=== PATIENT | female | born 1995 | race Caucasian/White ===

== ENCOUNTER → 2023-02-01 | Outpatient (REF) | LOC: M EMP 09:31 | PROVIDERS: ATTEND Family Medicine | DX: Z11.52 Encounter for screening for COVID-19 (principal) ==

== ENCOUNTER 2023-03-07 10:51 | Outpatient (CLI) | payer OTHER ==
[~2023-03-07] VITALS: Ht 157.5 cm; Wt 88.3 kg
[2023-03-07 11:06] VITALS: BP 119/63
[2023-03-07] MEDS ORDERED: PRENTAB9 PO (11:16)
[2023-03-07] MEDS ORDERED: ASPI81CH33 PO (11:17)
[2023-03-07] MEDS ORDERED: HOME MED LIST COMPLETE! XX SCH (11:20)
[2023-03-07] MEDS ORDERED: ACETAMINOPHEN 500 MG TAB PO ONE (13:10)
[2023-03-07] MEDS ORDERED: ONDANSETRON 4MG TAB PO PRN (13:15)
[2023-03-07 13:36] LABS: HEMATOCRIT 36.5 % (36.0-47.0); HEMOGLOBIN 12.3 g/dl (12.0-15.5); MEAN CORPUSCULAR HEMOGLOBIN 30.5 pg (27.0-33.0); MEAN CORPUSCULAR HGB CONC 33.7 g/dl (32.0-36.5); MEAN CORPUSCULAR VOLUME 90.6 fl (80.0-96.0); PLATELET COUNT, AUTOMATED 158 10^3/uL (150-450); RED BLOOD COUNT 4.03 10^6/uL (4.00-5.40); WHITE BLOOD COUNT 12.7 10^3/uL (4.0-10.0)
[2023-03-07 14:01] LABS: BLOOD UREA NITROGEN 14 MG/DL (9-23); CALCIUM LEVEL 8.7 MG/DL (8.5-10.1); CARBON DIOXIDE LEVEL 24 MMOL/L (20-31); CHLORIDE LEVEL 105 MMOL/L (98-107); CREATININE FOR GFR 0.77 MG/DL (0.55-1.30); GLOMERULAR FILTRATION RATE > 60.0 (>60); GLUCOSE, FASTING 88 MG/DL (60-100); POTASSIUM SERUM 3.5 MMOL/L (3.5-5.1); SODIUM LEVEL 137 MMOL/L (136-145)
[2023-03-07] MEDS ORDERED: oxyCODONE 5MG TAB PO ONE (14:15)
[2023-03-07] MEDS ORDERED: oxyCODONE 5MG TAB As Ordered ONE (14:22)
[2023-03-07 14:24] VITALS: BP 130/70
== END 2023-03-07 14:35 | disposition home or self-care (01) ==
LOC: M LDO 10:51
PROVIDERS: ATTEND Advanced Practice Midwife
DX: O26.893 Other specified pregnancy related conditions, third trimester (principal); M54.50 Low back pain, unspecified; Z3A.34 34 weeks gestation of pregnancy
CPT/HCPCS: 36415; 59025; 76775; 80048; 81001; 85027; 87086; G0463

== ENCOUNTER 2023-03-10 16:39 | Observation (INO) | payer OTHER, SELFPAY ==
[~2023-03-10] VITALS: Ht 157.5 cm; Wt 86.2 kg
[~2023-03-10 16:39] MED LIST: ASPI81CH33 PO; PRENTAB9 PO
[2023-03-10] MEDS ORDERED: CYCL5TAB PO (16:57)
[2023-03-10] MEDS ORDERED: OXYC-1 PO (16:57)
[2023-03-10] MEDS ORDERED: ACET-897 PO (16:57)
[2023-03-10] MEDS ORDERED: HOME MED LIST COMPLETE! XX SCH (17:00)
[2023-03-10 17:06] VITALS: BP 127/75; O2SAT 97
[2023-03-10] MEDS ORDERED: LR 1,000 ML IV ONE (17:15)
[2023-03-10 17:52] LABS: HEMATOCRIT 35.4 % (36.0-47.0); MEAN CORPUSCULAR HEMOGLOBIN 30.4 pg (27.0-33.0); MEAN CORPUSCULAR HGB CONC 33.9 g/dl (32.0-36.5); MEAN CORPUSCULAR VOLUME 89.6 fl (80.0-96.0); PLATELET COUNT, AUTOMATED 172 10^3/uL (150-450); RED BLOOD COUNT 3.95 10^6/uL (4.00-5.40); WHITE BLOOD COUNT 8.5 10^3/uL (4.0-10.0)
[2023-03-10] MEDS: LR 1,000 ML IV ONE (18:06)
[2023-03-10 18:20] LABS: ALBUMIN 2.7 G/DL (3.2-5.2); BILIRUBIN,TOTAL 1.3 MG/DL (0.3-1.2); CALCIUM LEVEL 8.4 MG/DL (8.5-10.1); CREATININE FOR GFR 1.21 MG/DL (0.55-1.30); GLOMERULAR FILTRATION RATE 57.3 (>60); POTASSIUM SERUM 3.8 MMOL/L (3.5-5.1); TOTAL PROTEIN 6.1 G/DL (5.7-8.2)
[2023-03-10 18:33] VITALS: BP 126/82
[2023-03-10 19:01] LABS: APPEARANCE, URINE HAZY (CLEAR); BACTERIA, URINE AUTO 1+ (NEGATIVE); BILIRUBIN, URINE AUTO NEGATIVE (NEGATIVE); BLOOD, URINE BLOOD NEGATIVE (NEGATIVE); COLOR, URINE YELLOW (YELLOW); GLUCOSE, URINE (UA) AUTO NEGATIVE (NEGATIVE); KETONE, URINE AUTO 1+ mg/dL (NEGATIVE); LEUKOCYTE ESTERASE, URINE AUTO 2+ (NEGATIVE); NITRITE, URINE AUTO NEGATIVE (NEGATIVE); PROTEIN, URINE AUTO 1+ mg/dL (NEGATIVE); RBC, URINE AUTO 2 /HPF (0-3); SPECIFIC GRAVITY URINE AUTO 1.015 (1.002-1.035); SQUAMOUS EPITHELIAL CELL UR AU 3 /HPF (0-6); UROBILINOGEN, URINE AUTO 0.2 mg/dL (0.0-2.0); WBC, URINE AUTO 6 /HPF (0-3)
[2023-03-10] MEDS: NALBUPHINE HCL 1MG/0.1ML (100MG/10ML) MDV IV PRN (19:56)
[2023-03-10] MEDS: TAMSULOSIN 0.4 MG CAP PO ONE (20:43)
[2023-03-10] MEDS: diphenhydrAMINE 50MG CAP PO PRN (22:12)
[2023-03-11] MEDS: NALBUPHINE HCL 1MG/0.1ML (100MG/10ML) MDV IV PRN (00:16)
[2023-03-11] MEDS: ACETAMINOPHEN 500 MG TAB PO SCH (02:17)
[2023-03-11 06:39] LABS: HEMATOCRIT 31.4 % (36.0-47.0); HEMOGLOBIN 10.6 g/dl (12.0-15.5); MEAN CORPUSCULAR HEMOGLOBIN 30.5 pg (27.0-33.0); MEAN CORPUSCULAR HGB CONC 33.8 g/dl (32.0-36.5); MEAN CORPUSCULAR VOLUME 90.2 fl (80.0-96.0); PLATELET COUNT, AUTOMATED 149 10^3/uL (150-450); RED BLOOD COUNT 3.48 10^6/uL (4.00-5.40); WHITE BLOOD COUNT 6.7 10^3/uL (4.0-10.0)
[2023-03-11 07:13] LABS: ALBUMIN 2.2 G/DL (3.2-5.2); ALKALINE PHOSPHATASE 109 U/L (46-116); ALT/SGPT 23 U/L (7.0-40); AST/SGOT 21 U/L (<34); BILIRUBIN,TOTAL 1.2 MG/DL (0.3-1.2); BLOOD UREA NITROGEN 10 MG/DL (9-23); CALCIUM LEVEL 7.8 MG/DL (8.5-10.1); CARBON DIOXIDE LEVEL 20 MMOL/L (20-31); CHLORIDE LEVEL 111 MMOL/L (98-107); GLOMERULAR FILTRATION RATE > 60.0 (>60); GLUCOSE, FASTING 67 MG/DL (60-100); POTASSIUM SERUM 3.6 MMOL/L (3.5-5.1); SODIUM LEVEL 140 MMOL/L (136-145); TOTAL PROTEIN 5.2 G/DL (5.7-8.2)
[2023-03-11 08:51] VITALS: BP 128/57; O2SAT 98
[2023-03-11] MEDS: LR 1,000 ML IV SCH (10:17)
[2023-03-11] MEDS: TAMSULOSIN 0.4 MG CAP PO SCH (10:21)
[2023-03-11 10:23] VITALS: BP 129/65; O2SAT 97
== END 2023-03-11 10:40 | disposition home or self-care (01) ==
LOC: M LDO 16:39 → M LDI 03-11 07:32 → OBSVTOIN 03-11 10:39 → INTOOBSV 03-11 10:39
PROVIDERS: ADMIT Advanced Practice Midwife; ATTEND Advanced Practice Midwife
DX: O26.833 Pregnancy related renal disease, third trimester (principal); N13.39 Other hydronephrosis; Z3A.34 34 weeks gestation of pregnancy
CPT/HCPCS: 36415; 59025; 74176; 76775; 76857; 80053; 81001; 85027; 96361; 96374; 96375; 96376; G0463; J2300

== ENCOUNTER 2023-04-10 06:24 | Outpatient (CLI) | payer OTHER ==
[~2023-04-10] VITALS: Ht 157.5 cm; Wt 88.1 kg
[~2023-04-10 06:24] MED LIST changes: +ACET-897 PO; +CYCL5TAB PO; +OXYC-1 PO
[2023-04-10 06:37] VITALS: BP 131/86
== END 2023-04-10 07:08 | disposition home or self-care (01) ==
LOC: M LDO 06:24
PROVIDERS: ATTEND Obstetrics & Gynecology
DX: O36.8130 Decreased fetal movements, third trimester, not applicable or unspecified (principal); Z3A.38 38 weeks gestation of pregnancy; Z79.82 Long term (current) use of aspirin; Z79.899 Other long term (current) drug therapy
CPT/HCPCS: 59025; G0463

== ENCOUNTER 2023-04-17 22:38 | Outpatient (CLI) | payer OTHER ==
[~2023-04-17] VITALS: Ht 157.5 cm; Wt 88.7 kg
[2023-04-17 22:55] VITALS: BP 128/81
== END 2023-04-17 23:25 | disposition home or self-care (01) ==
LOC: M LDO 22:38
PROVIDERS: ATTEND Obstetrics & Gynecology
DX: O47.1 False labor at or after 37 completed weeks of gestation (principal); Z3A.40 40 weeks gestation of pregnancy; Z79.82 Long term (current) use of aspirin; Z79.899 Other long term (current) drug therapy
CPT/HCPCS: 59025; G0463

== ENCOUNTER 2023-04-22 02:00 | Inpatient (IN) | payer OTHER ==
[2023-04-22] VITALS (34 sets, daily range): BP systolic 102–157; BP diastolic 54–95; TEMP 97.5; O2SAT 97
[~2023-04-22] VITALS: Ht 157.5 cm; Wt 88.8 kg
[2023-04-22] MEDS ORDERED: METHYLERGONOVINE MALEATE 0.2MG/ML 1ML VIAL IM PRN (04:05)
[2023-04-22] MEDS ORDERED: CARBOPROST TROMETHAMINE 250 MCG/ML AMP IM PRN (04:05)
[2023-04-22] MEDS ORDERED: TRANEXAMIC ACID INJection 1,000 MG in NS 100 ML IV PRN (04:05)
[2023-04-22] MEDS ORDERED: OXYTOCIN DRIP 30 UNITS in IV 1 EA IV PRN (04:05)
[2023-04-22] MEDS ORDERED: LIDOCAINE 1% MDV 20ML VIAL INFIL PRN (04:05)
[2023-04-22 05:27] LABS: HEMATOCRIT 36.7 % (36.0-47.0); HEMOGLOBIN 12.6 g/dl (12.0-15.5); MEAN CORPUSCULAR HEMOGLOBIN 30.5 pg (27.0-33.0); MEAN CORPUSCULAR HGB CONC 34.3 g/dl (32.0-36.5); MEAN CORPUSCULAR VOLUME 88.9 fl (80.0-96.0); PLATELET COUNT, AUTOMATED 157 10^3/uL (150-450); RED BLOOD COUNT 4.13 10^6/uL (4.00-5.40); WHITE BLOOD COUNT 9.4 10^3/uL (4.0-10.0)
[2023-04-22] MEDS: LACTATED RINGER'S 1000 ML IV STA (06:26)
[2023-04-22] MEDS ORDERED: NALOXONE INJ 0.4MG/1ML VIAL IV PRN (07:10)
[2023-04-22] MEDS ORDERED: EPIDURAL/PCA KEYS XX PRN (07:10)
[2023-04-22] MEDS ORDERED: diphenhydrAMINE 50MG/ML VIAL IV PRN (07:10)
[2023-04-22] MEDS ORDERED: ePHEDrine SULFATE 25 MG/5 ML(5MG/ML) SYRINGE IVP PRN (07:10)
[2023-04-22] MEDS ORDERED: LR 500 ML IV PRN (07:10)
[2023-04-22] MEDS: LR 1,000 ML IV SCH (07:23)
[2023-04-22] MEDS: FENTANYL/ROPIVACAINE/NACL BAG 100 ML EPIDURAL SCH (07:51)
[2023-04-22] MEDS ORDERED: LR 1,000 ML IV SCH ×2 (08:10→15:10)
[2023-04-22] MEDS ORDERED: OXYTOCIN DRIP 30 UNITS in IV 1 EA IV SCH (08:10)
[2023-04-22] MEDS: PRENATAL VITAMINS CHEWABLE TABLET PO SCH (09:00)
[2023-04-22] MEDS: ONDANSETRON 4MG 2ML VIAL IV PRN (09:01)
[2023-04-22] MEDS ORDERED: MOM 30ML SUSPENSION UDC PO PRN (15:10)
[2023-04-22] MEDS ORDERED: METHYLERGONOVINE MALEATE 0.2 MG TAB PO PRN (15:10)
[2023-04-22] MEDS ORDERED: RHOGAM 300MCG (1500IU) INJ IM SCH (15:10)
[2023-04-22] MEDS ORDERED: METOCLOPRAMIDE INJ 10MG/2ML VIAL IV PRN (15:10)
[2023-04-22] MEDS ORDERED: ACETAMINOPHEN TAB 650MG DOSE (2X325MG) PO PRN (15:10)
[2023-04-22] MEDS ORDERED: IBUPROFEN 600MG TAB PO PRN (15:10)
[2023-04-22] MEDS: OXYTOCIN DRIP 30 UNITS in IV 1 EA IV SCH (15:10)
[2023-04-22] MEDS: DOCUSATE SODIUM 100MG CAPSULE PO PRN (16:48)
[2023-04-22] MEDS: DIBUCAINE 1% OINTMENT 30GM TOP PRN (16:48)
[2023-04-22] MEDS: IBUPROFEN 800 MG TAB PO PRN (16:49)
[2023-04-22] MEDS: ACETAMINOPHEN 500 MG TAB PO PRN (20:25)
[2023-04-23 06:00] VITALS: BP 110/52; O2SAT 97
[2023-04-23 18:00] VITALS: BP 132/83; O2SAT 98
[2023-04-24 05:45] VITALS: BP 107/55; O2SAT 100
[2023-04-24] MEDS ORDERED: ACET1TAB55 PO (07:21)
[2023-04-24] MEDS ORDERED: COLA100C5 PO (07:21)
[2023-04-24] MEDS ORDERED: IBUP-1022 PO (07:21)
[2023-04-24] MEDS ORDERED: MEASLES,MUMPS,RUBELLA VACCINE INJ (MMR-II) SC.IMMUN ONE (09:00)
== END 2023-04-24 13:00 | disposition home or self-care (01) | DRG 807 ==
LOC: M LDO 02:00 → M LDI 04:20 → M OBS 16:28
PROVIDERS: ADMIT Obstetrics & Gynecology; ATTEND Obstetrics & Gynecology
PROC: 10E0XZZ Delivery of Products of Conception, External Approach (ICD-10-PCS; principal; 2023-04-22)
PROC: 10907ZC Drainage of Amniotic Fluid, Therapeutic from Products of Conception, Via Natural or Artificial Opening (ICD-10-PCS; 2023-04-22)
PROC: 0W8NXZZ Division of Female Perineum, External Approach (ICD-10-PCS; 2023-04-22)
DX: O48.0 Post-term pregnancy (principal); Z37.0 Single live birth; Z3A.40 40 weeks gestation of pregnancy; O76 Abnormality in fetal heart rate and rhythm complicating labor and delivery

== ENCOUNTER → 2024-10-25 | Outpatient (REF) | payer OTHER ==
[~2024-10-25] MED LIST changes: +ACET1TAB55 PO; +COLA100C5 PO; -CYCL5TAB PO; +CYCL5TAB4 PO; +IBUP600T42 PO
== END ==
LOC: M PLALAB 08:46
PROVIDERS: ATTEND Nurse Practitioner Family
DX: Z53.9 Procedure and treatment not carried out, unspecified reason (principal)

== ENCOUNTER → 2024-10-25 | Outpatient (CLI) | payer OTHER ==
[2024-10-25 10:53] LABS: PLATELET COUNT, AUTOMATED 223 10^3/uL (150-450)
[2024-10-25 12:06] LABS: HIV 1&2 SCREEN NEGATIVE (NEGATIVE)
[2024-10-25 12:08] LABS: Trichomonas vaginalis (AMP) NOT DETECTED (NEGATIVE)
[2024-10-25 12:14] LABS: HEPATITIS C VIRUS ABY INDEX < 0.02 INDEX (<0.8)
[2024-10-25 12:32] LABS: GC DNA AMPLIFICATION NEGATIVE (NEGATIVE)
== END ==
LOC: M PLALAB 08:57
PROVIDERS: ATTEND Nurse Practitioner Family
DX: Z34.80 Encounter for supervision of other normal pregnancy, unspecified trimester (principal)

== ENCOUNTER → 2024-12-17 | Outpatient (CLI) | payer OTHER | LOC: M WHC 09:58 | PROVIDERS: ATTEND Nurse Practitioner Family | DX: O44.02 Complete placenta previa NOS or without hemorrhage, second trimester (principal); Z3A.19 19 weeks gestation of pregnancy ==

== ENCOUNTER → 2025-02-14 | Outpatient (CLI) | payer OTHER ==
[2025-02-14 15:43] LABS: GLUCOSE CHALLENGE TEST 1 HOUR 94 MG/DL (LESS THAN 140)
[2025-02-14 15:44] LABS: PLATELET COUNT, AUTOMATED 167 10^3/uL (150-450)
[2025-02-14 16:18] LABS: HIV 1&2 SCREEN NEGATIVE (NEGATIVE)
[2025-02-14 16:25] LABS: HEPATITIS C VIRUS ABY INDEX 0.05 INDEX (<0.8)
[2025-02-14 17:07] LABS: Trichomonas vaginalis (AMP) NOT DETECTED (NEGATIVE)
[2025-02-14 17:31] LABS: GC DNA AMPLIFICATION NEGATIVE (NEGATIVE)
== END ==
LOC: M PLALAB 10:51
PROVIDERS: ATTEND Advanced Practice Midwife
DX: O44.02 Complete placenta previa NOS or without hemorrhage, second trimester (principal); Z3A.00 Weeks of gestation of pregnancy not specified